=== PATIENT | male | born 1995 | race Caucasian/White ===

== ENCOUNTER 2022-02-05 11:40 | Observation (INO) | payer BC ==
--- NOTE | 2022-02-05 13:33 | ER ---
Nurse's Notes [facility] Name: Saurav Michael Age: 26 yrs Sex: Male : 1995 Arrival Date: 02/05/2022 Time: 11:44 Bed 6 Private MD: Diagnosis: Acute tonsillitis, unspecified;Infectious mononucleosis, unspecified without complication Presentation: 02/05 11:49 Chief complaint: Parent and/or Guardian states: patient tested positive for MONO last ap3 night at [facility]. it is reported the parent contacted the patients PCP who wanted him evaluated in the ED for antibiotics and to make sure that the patient is well hydrated. Patient complains of throat pain at this time patient reports the pain as an 8/10 on the pain scale. Symptoms started 01/29/2022. Coronavirus screen: Client presents with at least one sign or symptom that may indicate coronavirus-19. Ebola Screen: No symptoms or risks identified at this time. Initial Sepsis Screen: Does the patient meet any 2 criteria? HR > 90 bpm. Does the patient have a suspected source of infection? Yes: Other: reported MONO infection. Risk Assessment: Do you want to hurt yourself or someone else? Patient reports no desire to harm self or others. Onset of symptoms was January 29, 2022. 11:49 Method Of Arrival: Ambulatory ap3 11:49 Acuity: APOORVA 3 ap3 Triage Assessment: 11:55 General: Appears uncomfortable, Behavior is calm. Pain: Complains of pain in throat ap3 Pain currently is 8 out of 10 on a pain scale. Pain began gradually, 7 days ago. EENT: Throat has enlarged tonsils on right on left. EENT: Reports pain when swallowing. Neuro: Level of Consciousness is awake, alert, obeys commands, Oriented to person, place, time, situation. Cardiovascular: Patient's skin is warm and dry. Respiratory: Airway is patent is compromised Respiratory effort is even, unlabored, Respiratory pattern is regular, symmetrical. Historical: - Allergies: 11:54 No Known Allergies; ap3 - Home Meds: 11:54 None [Active]; ap3 - PMHx: 11:54 mono; ap3 - Immunization history:: Client reports receiving the 2nd dose of the Covid vaccine. - Social history:: Smoking status: Patient denies any tobacco usage or history of. Screenin:56 Abuse screen: Denies threats or abuse. Nutritional screening: not able to eat/drink ap3 well for the last week due to throat pain. Tuberculosis screening: No symptoms or risk factors identified. 13:46 Fall Risk IV access (20 points). Total Chapman Fall Scale indicates No Risk (0-24 pts). ll1 Assessment: 12:55 Reassessment: No changes from previously documented assessment. Patient and/or family ll1 updated on plan of care and expected duration. Pain level reassessed. Patient is alert, oriented x 3, equal unlabored respirations, skin warm/dry/pink. 13:46 Reassessment: No changes from previously documented assessment. Patient and/or family ll1 updated on plan of care and expected duration. Pain level reassessed. Patient is alert, oriented x 3, equal unlabored respirations, skin warm/dry/pink. 14:20 Reassessment: No changes from previously documented assessment. Patient and/or family kr3 updated on plan of care and expected duration. Pain level reassessed. 15:25 Reassessment: No changes from previously documented assessment. Patient and/or family kr3 updated on plan of care and expected duration. Pain level reassessed. 15:28 Respiratory: Airway is patent Breath sounds are clear bilaterally. kr3 Vital Signs: 11:49 BP 130 / 85; Pulse 105; Resp 18; Temp 98.8; Pulse Ox 100% ; Weight 88 kg; Height 6 ft. ap3 0 in. (182.88 cm); Pain 8/10; 13:50 BP 113 / 74; Pulse 82; Resp 18; Pulse Ox 98% ; kr3 14:58 BP 118 / 77; Pulse 89; Resp 18; Temp 97.9; Pulse Ox 99% on R/A; kr3 11:49 Body Mass Index 26.31 (88.00 kg, 182.88 cm) ap3 ED Course: 11:44 Patient arrived in ED. mr 11:54 Triage completed. ap3 11:56 Arm band placed on right wrist. ap3 12:02 Kacie Salazar FNP-C is [facility]. kb 12:02 Isra Dominique MD is Attending Physician. kb 12:58 Missed attempt(s): 22 gauge in right antecubital area. Bleeding controlled, band aid ll1 applied, catheter tip intact. 13:00 Inserted saline lock: 22 gauge in right antecubital area, using aseptic technique. ll1 Blood collected. 13:32 Kandi Choi MD is Hospitalizing Provider. kb 13:45 COVID-19 SARS RT PCR (Document "Date of Onset" if Symptomatic) Sent. ll1 13:46 Patient has correct armband on for positive identification. Bed in low position. Call ll1 light in reach. Side rails up X 1. Client placed on continuous cardiac and pulse oximetry monitoring. NIBP monitoring applied. equipment monitor phototypesetting on. 13:46 No provider procedures requiring assistance completed. Patient admitted, IV remains in ll1 place. 14:51 Lynne Heaton, RN is Primary Nurse. kr3 Administered Medications: 13:38 Drug: Decadron - Dexamethasone 10 mg Route: IVP; Site: right antecubital; ll1 15:26 Follow up: Response: No adverse reaction kr3 13:38 Drug: NS 0.9% 1000 ml Route: IV; Rate: 1000 ml; Site: right antecubital; ll1 15:26 Follow up: Response: No adverse reaction; IV Status: Completed infusion; IV Intake: kr3 1000ml 13:44 Drug: Lortab (HYDROcodone-acetaminophen) Liquid 15 ml {Note: rass 0, pain 9/10.} Route: ll1 PO; 14:51 Follow up: Response: No adverse reaction; RASS: Drowsy (-1) kr3 Medication: 13:46 VIS not applicable for this client. ll1 Intake: 15:26 IV: 1000ml; Total: 1000ml. kr3 Outcome: 13:33 Decision to Hospitalize by Provider. kb 15:28 Admitted to Med/surg accompanied by tech, via wheelchair, Report called to DALE Coulter kr3 15:32 Condition: stable kr3 15:32 Instructed on the need for admit. 15:38 Patient left the ED. kr3 Signatures: Kacie Salazar, TRENT MULLER-Richelle Marylu Manning Aminah Sawyer, RN RN ap3 Jaelyn Vega RN RN ll1 Lynne Heaton, DALE RN kr3 Corrections: (The following items were deleted from the chart) 11:55 11:54 PMHx: None; ap3 ap3
--- NOTE | 2022-02-05 13:34 | EDPHYS ---
Physician Documentation [facility] Name: Saurav Michael Age: 26 yrs Sex: Male : 1995 Arrival Date: 02/05/2022 Time: 11:44 Bed 6 Private MD: ED Physician Isra Dominique HPI: 02/05 13:23 This 26 yrs old Male presents to ER via Ambulatory with complaints of Sore Throat. kb 13:23 The patient presents with sore throat. The patient describes throat pain as constant. kb Onset: The symptoms/episode began/occurred 1 week(s) ago. Severity of symptoms: At their worst the symptoms were moderate, in the emergency department the symptoms are unchanged. Modifying factors: The symptoms are alleviated by nothing, the symptoms are aggravated by swallowing, Patient's oral intake status: limited fluid intake, limited food intake, Denies contact with similarly ill indivduals. Associated signs and symptoms: Pertinent positives: shortness of breath Sore throat. The patient has not experienced similar symptoms in the past. The patient has not recently seen a physician. Pt reports sore throat and shortness of breath that started a week ago and has progressively gotten worse. States he tested positive for mono last night at [place], went to see Dr Choi today and she tried to admit him here, but was told to send him to the ER first. . Historical: - Allergies: 11:54 No Known Allergies; ap3 - Home Meds: 11:54 None [Active]; ap3 - PMHx: 11:54 mono; ap3 - Immunization history:: Client reports receiving the 2nd dose of the Covid vaccine. - Social history:: Smoking status: Patient denies any tobacco usage or history of. ROS: 13:22 Constitutional: Negative for fever, chills, and weight loss. kb 13:22 ENT: Positive for sore throat. 13:22 Respiratory: Positive for shortness of breath. 13:22 All other systems are negative. Exam: 13:22 Head/Face: Normocephalic, atraumatic. Cardiovascular: Regular rate and rhythm with a kb normal S1 and S2. No gallops, murmurs, or rubs. No pulse deficits. Respiratory: Respirations even and unlabored. No increased work of breathing. Talking in full sentences Abdomen/GI: Soft, non-tender. No distention Skin: Warm, dry with normal turgor. Normal color. MS/ Extremity: Pulses equal, no cyanosis. Neurovascular intact. Full, normal range of motion. Neuro: Awake and alert, GCS 15, oriented to person, place, time, and situation. Moves all extremities. Normal gait. Psych: Awake, alert, with orientation to person, place and time. Behavior, mood, and affect are within normal limits. 13:22 Constitutional: The patient appears alert, awake, uncomfortable. 13:22 ENT: Posterior pharynx: Airway: normal, no evidence of obstruction, Tonsils: bilaterally enlarged, Uvula: normal, midline, swelling, that is marked, erythema, that is mild. Vital Signs: 11:49 BP 130 / 85; Pulse 105; Resp 18; Temp 98.8; Pulse Ox 100% ; Weight 88 kg; Height 6 ft. ap3 0 in. (182.88 cm); Pain 8/10; 13:50 BP 113 / 74; Pulse 82; Resp 18; Pulse Ox 98% ; kr3 14:58 BP 118 / 77; Pulse 89; Resp 18; Temp 97.9; Pulse Ox 99% on R/A; kr3 11:49 Body Mass Index 26.31 (88.00 kg, 182.88 cm) ap3 MDM: 13:07 Patient medically screened. kb 13:22 Data reviewed: vital signs, nurses notes. Data interpreted: Pulse oximetry: on room air kb is 100 %. Interpretation: normal. 13:24 Physician consultation: Kandi Choi MD was contacted at 13:24, regarding kb admission, to the medical/surgical unit. patient's condition, and will see patient in inpatient room. 13:32 Counseling: I had a detailed discussion with the patient and/or guardian regarding: the kb historical points, exam findings, and any diagnostic results supporting the discharge/admit diagnosis, lab results, the need for further work-up and treatment in the hospital. 02/05 13:09 Order name: CBC with Diff; Complete Time: 13:44 kb 02/05 13:09 Order name: Basic Metabolic Panel; Complete Time: 13:55 kb 02/05 13:19 Order name: COVID-19 SARS RT PCR (Document "Date of Onset" if Symptomatic); Complete kb Time: 14:48 02/05 13:09 Order name: IV Start; Complete Time: 13:12 kb Administered Medications: 13:38 Drug: Decadron - Dexamethasone 10 mg Route: IVP; Site: right antecubital; ll1 15:26 Follow up: Response: No adverse reaction kr3 13:38 Drug: NS 0.9% 1000 ml Route: IV; Rate: 1000 ml; Site: right antecubital; ll1 15:26 Follow up: Response: No adverse reaction; IV Status: Completed infusion; IV Intake: kr3 1000ml 13:44 Drug: Lortab (HYDROcodone-acetaminophen) Liquid 15 ml {Note: rass 0, pain 9/10.} Route: ll1 PO; 14:51 Follow up: Response: No adverse reaction; RASS: Drowsy (-1) kr3 Disposition Summary: 02/05/22 13:33 Hospitalization Ordered Hospitalization Status: Observation kb Provider: Kandi Choi Location: Telemetry/MedSur (observation) kb Condition: Stable kb Problem: new kb Symptoms: are unchanged kb Bed/Room Type: Standard Room Assignment: 205(02/05/22 14:49) kb Diagnosis - Acute tonsillitis, unspecified kb - Infectious mononucleosis, unspecified without complication kb Forms: - Medication Reconciliation Form kb - SBAR form kb Signatures: Dispatcher [employer] Kacie Dickson FNP-C FNP-Ckb Prokisch, Amanda RN RN ap3 Jaelyn Vega RN RN ll1 Lynne Heaton RN kr3 Corrections: (The following items were deleted from the chart) 11:55 11:54 PMHx: None; ap3 ap3 14:49 13:33 kb kb
[2022-02-05 13:35] LABS: Absolute Lymphocytes (CBC) 4.8 K/uL (0.7-4.9); Hematocrit 41.1 % (39.6-49.0); Lymphocytes % 38.9 % (15.3-44.8); MCV 83.7 fL (80-100); MPV 7.4 fL (7.6-11.3); RBC Red Blood Cell Count 4.91 M/uL (4.33-5.43)
[2022-02-05] MEDS ORDERED: NA CHLORIDE 0.9% 1,000 ML ONE (13:35)
[2022-02-05] MEDS ORDERED: dexAMETHasone 10 MG/ML VIAL ONE (13:35)
[2022-02-05 13:46] LABS: Potassium 3.7 mmol/L (3.5-5.1)
[2022-02-05] MEDS ORDERED: HYDROCOD 2.5mg-ACETAMIN 108mg/5mL Soln ONE (13:48)
[2022-02-05 16:03] VITALS: BMI 26.3
[2022-02-05] MEDS ORDERED: PNEUMOCOCCAL VACCINE 0.5 ML IMVAC ONE (17:00)
[2022-02-05] MEDS: NA CHLORIDE 0.9% 1,000 ML IV SCH (17:35)
[2022-02-05] MEDS: dexAMETHasone 10 MG/ML VIAL IV SCH (17:35)
[2022-02-05] MEDS: HYDROCOD 2.5mg-ACETAMIN 108mg/5mL Soln PO PRN (17:41)
[2022-02-06] MEDS: dexAMETHasone 10 MG/ML VIAL IV SCH ×3 (01:09→21:00)
[2022-02-06] MEDS: HYDROCOD 2.5mg-ACETAMIN 108mg/5mL Soln PO PRN ×3 (01:12→21:35)
[2022-02-06] MEDS: NA CHLORIDE 0.9% 1,000 ML IV SCH ×3 (03:30→23:04)
[2022-02-06 05:42] LABS: Absolute Lymphocytes (CBC) 2.4 K/uL (0.7-4.9); Lymphocytes % 26.4 % (15.3-44.8); MCV 83.2 fL (80-100); MPV 7.4 fL (7.6-11.3); RBC Red Blood Cell Count 4.57 M/uL (4.33-5.43)
[2022-02-06 05:47] LABS: Potassium 4.5 mmol/L (3.5-5.1)
--- NOTE | 2022-02-06 12:56 | PN ---
Date of Progress Note: 02/06/2022 Interim History: Patient is hospital day 2. He continues to have severe sore throat and difficulty with swallowing. Overnight, he tolerated a very small amount of clear liquids. Physical Examination: General: Patient appears acutely ill, pale. He has mild stertorous breathing. He does not have any increased work of breathing, retractions, or tripoding. He has a hot potato voice. HEENT: His oral exam demonstrates 4+ tonsils with diffuse white exudate. The posterior pharyngeal w all and uvula are not visualized due to the degree of swelling of the tonsils. Assessment: Persistent tonsillitis due to infectious mononucleosis with severe odynophagia resulting in dehydration. The patient continues to be unable to adequately maintain his hydration. Plan: Continue IV fluids, continue IV steroids. We will re-assess the patient in the afternoon for clinical progress. If he is not significantly improved, we will plan to change from observation to i npatient status at that time. LORRIE/AYLA Voice ID: [id number] Report ID: [id number]
[2022-02-06] MEDS: IBUPROFEN 100 MG/5 ML UCUP PO PRN (13:30)
--- NOTE | 2022-02-06 18:14 | HP ---
Date of Admission: 02/05/2022 Under observation status. Diagnoses: Severe tonsillitis, mononucleosis, dehydration. History Of Present Illness: Saurav began having sore throat around January 28. He was seen on February 01 at [facility] with concern for bilateral peritonsillar abscesses per the clinical staff. He underwent blood work and a CT scan of the neck, which revealed no abscess. He was kept for severa l hours with IV hydration and presumed antibiotics and steroids. He was seen in the ENT Clinic on of February 02, at which time, he felt much better compared to the day prior. He reports a h istory of yearly tonsillitis, but increasing to twice yearly over the last couple of years. Typicall y during the infections, his tonsils are very large, obstructing his swallowing and causing difficult y speaking. About 3 or 4 years ago, he had a unilateral peritonsillar abscess, which was treated by the emergency room staff. The patient subsequently worsened over the weekend and was seen [facility] on February 04, at which time, he tested positive for mononucleosis. He was again kept overnight for IV hydration and presented to the ENT Clinic on the morning of February 05. Past Medical History: Allergic rhinitis. Past Surgical History: None. Allergies: NONE. Home Medications: Zyrtec 10 mg daily. Social History: Never smoker, rare to occasional alcohol. Family History: Hypothyroidism. Review of Systems: The patient complains of malaise, fatigue, severe sore throat, difficulty swallowing, generalized wea kness. He denies any severe headache, vision changes, nausea, vomiting, diarrhea, bone or joint pain . Physical Examination: In the clinic; the patient's blood pressure was 146/84, pulse 105, height 72 inches, weight 193. The patient overall appeared acutely ill with significant hot potato voice, 4+ tonsils with overlying ex udate. The tip of the uvula was not visible, but the base of the uvula did not appear significantly swollen. There was no clinical evidence of peritonsillar abscess. He had tender bilateral cervical lymphadenitis. Diagnoses: Mononucleosis with acute tonsillitis, dehydration evidenced by tachycardia. Plan: After discussing options with the patient and his father, they were agreeable to be placed und er observation status at [facility] with a plan for IV hydration, intravenous steroids, and close m onitoring. Due to the patient's worsening clinical status compared to his exam on the , he is at risk for airway obstruction due to the size of the tonsils. We will plan to place him in observatio n status, but monitor him closely and convert to inpatient if he is not improving within a 23-hour pe riod of time. RISA Voice ID: [id number]
--- NOTE | 2022-02-06 18:23 | P.PN ---
Date of Service: 02/06/22 Patient seen at 18:15 today. He continues to have very limited oral intake due to the severity of his tonsil swelling and pain. He continues to have severely swollen tonsils, 4+ with risk of airway obstruction and persistent hot potato voice. His mono titers drawn on Saturday at [facility] were IgM >150 confirming diagnosis of EBV as cause of symptoms. Due to the severe and persistent clinical findings and inability to maintain hydration without IV fluid supplementation, I recommend continued treatment her in the facility.
--- NOTE | 2022-02-07 08:08 | P.PN ---
Date of Service: 02/07/22 HD 2: Patient continued with steroids and IVF overnight. Reports improvement in pain and subjective degree of throat swelling. Better able to tolerate oral fluids this morning compared to last night. General exam shows improvement in degree of actue illness. Oropharynx exam is stable but degree of hot potato voice is improving. Exudate on tonsils is stable without sloughing today. A: Mononucleosis, severe tonsil swelling, risk of airway obstruction decreased, dehydration resolved P: D/C IV. D/C home with Lortab elixir and slow constant oral hydration at home. Contact Dr Choi's office for any worsening.
[2022-02-07] MEDS: IBUPROFEN 100 MG/5 ML UCUP PO PRN (08:15)
[2022-02-07] MEDS: dexAMETHasone 10 MG/ML VIAL IV SCH (08:16)
[2022-02-07 08:28] VITALS: O2SAT 98
[2022-02-07 11:59] VITALS: BP 133/82; TEMP 97.7
== END 2022-02-07 10:09 | disposition home or self-care (01) ==
LOC: ER 11:40 → ERHOLD 14:11 → 2ND 15:33
PROVIDERS: ADMIT Otolaryngology; ATTEND Otolaryngology
DX: J03.90 Acute tonsillitis, unspecified (principal); E86.0 Dehydration; B27.90 Infectious mononucleosis, unspecified without complication; J30.9 Allergic rhinitis, unspecified; Z20.822 Contact with and (suspected) exposure to COVID-19
CPT/HCPCS: 96361; 85025 ×2; 80048 ×2; 36415; 96374; 99285; U0003; J1100 ×5; J7030 ×5; G0378 ×4

== ENCOUNTER 2022-03-09 06:20 | Day surgery (SDC) | payer BC ==
[2022-03-07 11:51] LABS: SARS-CoV-2 Antigen Rapid Res Negative (Negative)
[2022-03-09] MEDS ORDERED: Ringers Lactate 1,000 ML IV ONE (06:34)
[2022-03-09] MEDS ORDERED: propofoL 200 MG/20 ML VIAL IV ONE (06:59)
[2022-03-09] MEDS ORDERED: dexAMETHasone 10 MG/ML VIAL ONE (07:00)
[2022-03-09] MEDS ORDERED: MIDAZOLAM HCL 2 MG/2 ML INJ ONE (07:00)
[2022-03-09] MEDS ORDERED: FENTANYL CITR 100 MCG/2 ML ONE (07:00)
[2022-03-09] MEDS ORDERED: ROCURONIUM 50 MG/5 ML VIAL IV ONE (07:00)
[2022-03-09] MEDS ORDERED: LIDOCAINE 1% MPF 5 ML VIAL ONE (07:00)
[2022-03-09] MEDS ORDERED: ACETAMINOPHEN 500 MG TAB ONE (07:12)
[2022-03-09] MEDS ORDERED: MORPHINE 10 MG/ML VIAL ONE (08:36)
--- NOTE | 2022-03-09 08:37 | P.OP ---
Date of Service: 03/09/22 Preoperative diagnosis: [Tonsil hypertrophy,] [Recurrent acute tonsillitis,] [Chronic tonsillitis,] Postoperative diagnosis: [Same] Procedure: Tonsillectomy Surgeon: Kandi Choi MD Gallery Assistant: None Anesthesia: General via endotracheal tube IV fluids: 750 ml crystalloid Estimated blood loss: 5-10 mL Specimen: [bilateral tonsils] Findings: Significantly scarred and inflamed tonsils Implants: None Indication: patient with persistent symptoms and findings in spite of good medical management. Details of operation: The patient was brought to the operating room and placed under general anesthesia via oral endotracheal tube. The head of bed was turned 90 degrees. A shoulder roll was placed and the neck was extended. A head drape was applied. The McIvor mouthgag was placed and suspended from the Singh stand. The oxygen concentration was confirmed with the anesthesiologist and was less than 40%. Weight-based dexamethasone was administered by the anesthesiologist. The soft palate was palpated and there was no submucous cleft. A red rubber catheter was placed in the nose and the tip withdrawn through the mouth and secured to the head drape for retraction of the soft palate. The tonsils were noted to be enlarged and mildly inflamed. The left tonsil was grasped with a straight Allis clamp. The Bovie electrocautery was used to incise the mucosa over the anterior pillar and identified the tonsillar capsule. The tonsil was dissected using cautery and blunt dissection until free from soft tissue attachments. A tonsil ball was placed to aid in hemostasis. The right tonsil was removed in a similar manner. Both tonsils were significantly scarred, likely due to frequency of tonsil infections and recent mononucleosis. The base of the left tonsil was left in situ due to the depth and extent of the tonsil tissue with desire to avoid base of tongue musculature and bleeding The tonsillar fossa's were injected with 0.5% Marcaine with epinephrine; a total of 3 milliliters was used. The oropharynx was irrigated with cold saline. After suctioning, a [place] sump orogastric tube was passed for decompression of the stomach. The red rubber catheter was removed and used to suction the oropharynx, nasopharynx, and nasal cavities. The McIvor mouthgag was removed. There was no evidence of injury to the teeth, lips, or tongue. The mandible was mobile. The patient was then awakened from anesthesia and extubated in the operating room, taken to the recovery room in stable condition. Disposition: The patient will be discharged home later today in the care of their family with written postoperative instructions and appropriate pain medications. They will follow-up in Dr. Choi's office in approximately 1 month. They are instructed to contact Dr. Choi's office for any bleeding or other concerns.
[2022-03-09] MEDS ORDERED: MEPERIDINE HCL 25 MG/ML SYR ONE (09:04)
[2022-03-09] MEDS ORDERED: ONDANSETRON 4 MG/2 ML VIAL ONE (09:04)
[2022-03-09] MEDS ORDERED: HYDROCOD 2.5mg-ACETAMIN 108mg/5mL Soln ONE (09:41)
[2022-03-09 10:07] VITALS: BP 122/82; TEMP 97.8; O2SAT 97
== END 2022-03-09 09:50 | disposition home or self-care (01) ==
LOC: OR 06:20
PROVIDERS: ATTEND Otolaryngology
PROC: 0CTPXZZ Resection of Tonsils, External Approach (ICD-10-PCS; principal; 2022-03-09 08:00)
DX: J03.91 Acute recurrent tonsillitis, unspecified (principal); Z20.822 Contact with and (suspected) exposure to COVID-19
CPT/HCPCS: 36415; 88304; 87811; 42826; J2704; J2250; J3010; J1100; J2175; J7120; J2405